=== PATIENT | female | born 1975 | race Caucasian/White ===

== ENCOUNTER 2025-07-17 11:50 | Emergency (ER) | payer BC, OTHER, SELFPAY ==
--- OUTSIDE RECORDS SUMMARY | 2013-11-12 23:00 | XMS_ITS | Encounter Summary ---
Author Organization [facility] Healthcare Address [address] [place] [address] Care Team Providers Care Manager Welding Name Role Phone Unavailable Primary Care Provider Unavailabl e Reason for Visit * Diagnostic Imaging (Routine) - Pending Review Specialty Diagnoses / Procedures Referred By Contac t Referred To Contact Procedures Breast Imaging Diagnostic Outside Reference Sydnie Augustine, CARLOS [address] [address] Phone: tel: fax: Referral ID Status Reason Start Date Expiration Date V isits Requested Visits Authorized [id number] Pending Review 06/23/2024 07/23/2025 1 1 Encounter Details Date Type Department Care Team (Late st Contact Info) Description 11/13/2013 Hospital Encounter [facility] [address] [place] [id number] Social History Tobacco Use Types Packs/Day Years Used Date Smoking Tobacco: Never Smokeless Tobacco: Never Alcohol Use Standard Drinks/Week Comments Yes 0 (1 standard drink = 0.6 oz pur e alcohol) AUDIT-C Answer Date Recorded Q1: How often do you have a drink containing alc ohol? Monthly or less 07/14/2025 Q2: How many drinks containi ng alcohol do you have on a typical day when you are drinking? 1 or 2 07/14/2025 Q3: How often do you have si x or more drinks on one occasion? Never 07/14/2025 Personal Safety Answer Date Recorded Have you ever been in or are you currently in a harmful physical or emotional relationship or is someone making you feel afraid or unsafe? Denies 07/14/2025 Comments No Sex and Gender Information Value Date Recorded Sex Assigned at Not on file Legal Sex Female 4:25 PM CDT Gender Identity Not on file Sexual Orientation Not on file documented as of this encounter Functional Status * C.A.G.E. Question Answer Date of Assessment Author Have you ever felt the need to Cut down on your drinking? 0 10/21/2024 9:00 AM Guillermina Gregorio RN Have people ever Annoyed yo u by criticizing your drinking? 0 10/21/2024 9:00 AM Jaymie Gregorio RN Have you ever felt bad or G uilty about your drinking? 0 10/21/2024 9:00 AM Guillermina Gregorio RN Have you ever had a drink fi rst thing in the morning to steady your nerves or get rid of a hangover? Eye ammonia nitrate operator? 0 10/21/2024 9:00 AM Guillermina Gregorio RN CAGE SCORE: 2 or Greater = Positive 0 10/21 9:00 AM Guillermina Gregorio RN * Difference in Last Two Wenceslao Scores Answer Date of Assessment Author -3 10/21/2024 8:00 AM Jaymie Gregorio RN * Question Answer Date of Assessment Author BP Location Right arm 07/14/2025 8:30 AM Magaly Francisco RN BP Method Automatic 07/14/2025 8:30 AM Magaly Francisco, WANDY * Wyman Fall Risk Question Answer Date of Assessment Author History of Falling 0 07/14/2025 8:30 AM Magaly Francisco RN Secondary Diagnosis 15 07/14/2025 8:30 AM CS Magaly Jon, hvac mechanical engineer Aids 0 07/14/2025 8:30 AM Magaly Castorena RN Intravenous Therapy/Heparin/Saline Lock 0 07/14/2025 8:30 AM Magaly Cabral, WANDY Gait/Transferring 0 07/14/2025 8:30 AM Magaly Francisco RN Mental Status 0 07/14/2025 8:30 AM ADMINISTRATION MANAGER Magaly Payan, WANDY Wyman Fall Risk Score (Score >= 45 places fall precaution order) 15 07/14/2025 8:30 AM ADMINISTRATION MANAGER Kiran Payan RN Prior Fall Event (Autopopulated from EMR) None found 07/14/2025 8:30 AM ADMINISTRATION MANAGER Magaly Davies, WANDY * Wenceslao Scale Question Answer Date of Assessment Author Sensory Perceptions 4 10/21/2024 8:00 AM CD Guillermina Jarvis RN Moisture 4 10/21/2024 8:00 AM CDT Guillermina Black RN Activity 4 10/21/2024 8:00 AM CDGuillermina Jarvis RN Mobility 4 10/21/2024 8:00 AM CDT Guillermina Black RN Nutrition 3 10/21/2024 8:00 AM Guillermina Gregorio RN Friction and Shear 3 10/21/2024 8:00 AM CDT Guillermina Black RN Wenceslao Scale Score 22 10/21/2024 8:00 AM CDT Guillermina Black RN * Question Answer Date of Assessment Author MAP (mmHg) 74 10/21/2024 8:28 AM CDT [facility] Kia hein * Fall Risk Interventions Question Answer Date of Assessment Author All Low Fall Interventions Applied Yes 2024 8:00 AM Guillermina Gregorio RN All Moderate Fall Interventions Applied Yes 0 10/21/2024 8:00 AM CDT Guillermina Black RN * B.M.A.T. - Bedside Mobility Assessment Tool for Nurses Question Answer Date of Assessment Author Is patient able to participate in the BMAT? Yes 10/20/2024 7:15 PM CDT Chelsea Templeton BMAT Level Level 4 - Green 10/20/2024 7:15 PM CDT Lizzie Allen * Question Answer Date of Assessment Author 1. Has the patient self-repo rted, presented with clinical signs of, or have a documented history of any of the following within the past 30 days? No 10/21/2024 9:33 AM CDT Guillermina Welch RN * Self-Injurious Risk Level Answer Date of Assessment Author No risk level 10/21/2024 9:33 AM MARY ELLENT Jaymie Black RN * Pressure Injury Prevention Question Answer Date of Assessment Author Pressure Ulcer Prevention Interventions Keep skin clean and dry (Sensory Perception/Moisture ) 10/20/2024 7:15 PM CDT Lizzie Templeton * Transdermal Patch Admission Assessment Question Answer Date of Assessment Author Transdermal Patch Assessment on Admission Not Present 10/21/2024 9:33 AM MARY ELLENT Guillermina Black RN * AUDIT-C Score Answer Date of Assessment Author 1 07/14/2025 8:43 AM Magaly Cabral RN * Alcohol Use Question Answer Date of Assessment Author Q1: How often do you have a drink containing alcohol? Monthly or less 07/14/2025 8:43 AM Kiran Francisco RN Q2: How many drinks containing alcohol do you have on a typical day when you are drinking? 1 or 2 07/14/2025 8:43 AM Magaly Francisco RN Q3: How often do you have six or more drinks on one occasion? Never 07/14/2025 8:43 AM Kiran Francisco RN * Integumentary Question Answer Date of Assessment Author Skin Color Appropriate for ethnicity 10/21/2024 8:00 AM Guillermina Gregorio RN Skin Condition/Temp Warm;Dry 10/21/2024 8 :00 AM Guillermina Gregorio RN Skin Integrity Surgical incision 10/21/2024 8:0 0 AM Guillermina Gregorio RN Skin Turgor Non-tenting 10/21/2024 8:00 AM Guillermina Gregorio RN Integumentary Additional Assessments Yes-Wenceslao 10/21/2024 8:00 AM Guillermina Gregorio RN Integumentary (WDL) WDL 10/21/2024 8 :00 AM Guillermina Gregorio RN Skin Location L breast 10/21/2024 8:00 AM Guillermina Gregorio RN * Wenceslao Scale Question Answer Date of Assessment Author Wenceslao Scale Used Wenceslao 10/20/2024 4:00 PM MARY ELLENT Krystle Gaming RN * Question Answer Date of Assessment Author Hearing - Right Ear Functional 07/14/2025 8:30 AM Magaly Jon RN Hearing - Left Ear Functional 07/14/2025 8:30 AM Magaly Francisco, WANDY Assistive Devices/DME Eyeglasses 07/14/2025 8:30 AM Magaly Francisco, RN * Question Answer Date of Assessment Author BP Location Right arm 07/14/2025 8:30 AM Magaly Francisco, RN BP Method Automatic 07/14/2025 8:30 AM Magaly Francisco, RN * Question Answer Date of Assessment Author Percent Meal Eaten (%) 100 10/21/2024 8:30 AM Kia Chavez Feeding Level of Assistance Able to feed self 10/21/2024 12:05 PM CDT Kia Brady Appetite Good 10/21/2024 8:30 AM CDT Kia Clayton ed Percent Snack Eaten (%) 100 10/21/2024 12:05 PM CDT Kia Brady * Fall Risk Interventions Question Answer Date of Assessment Author All Low Fall Interventions Applied Yes 2024 8:00 AM Guillermina Gregorio RN All Moderate Fall Interventions Applied Yes 0 10/21/2024 8:00 AM Guillermina Gregorio RN * ADL Screening Question Answer Date of Assessment Author Patient's Vision Adequate to Safely Complete Daily Activities Yes 10/21/2024 9:33 AM Guillermina Gregorio RN Patient's Judgement Adequate to Safely Complete Daily Activities Yes 10/21/2024 9:33 AM Guillermina Gregorio RN Patient's Memory Adequate to Safely Complete Daily Activities Yes 10/21/2024 9:33 AM Guillermina Gregorio RN Patient Able to Express Needs/Desires Yes 10/21/2024 9:33 AM Guillermina Gregorio RN Dressing Needs assistance 10/21/2024 9:33 AM Guillermina Mitchell RN Grooming Independent 10/21/2024 9:33 AM Guillermina Gregorio RN Feeding Independent 10/21/2024 9:33 AM Guillermina Gregorio RN Bathing Independent 10/21/2024 9:33 AM MARY ELLENT Guillermina Black RN Toileting Independent 10/21/2024 9:33 AM Guillermina Gregorio RN In/Out Bed Independent 10/21/2024 9:33 AM Guillermina Gregorio RN Walks in Home Independent 10/21/2024 9:33 AM MARY ELLENT Guillermina Black RN Weakness of Legs None 10/21/2024 9:33 AM MARY ELLENT Guillermina Lacy RN Weakness of Arms/Hands None 10/21/2024 9:33 AM MARY ELLENT Guillermina Black RN Dominant hand? Right 10/21/2024 9:33 AM MARY ELLENT Guillermina Menchaca RN Decline in ADLs in last 2 weeks? No 10/21/2024 9:33 AM Guillermina Gregorio RN * Therapy Consults Question Answer Date of Assessment Author PT Evaluation Needed 1 10/21/2024 9:33 AM Guillermina Machado RN OT Evaluation Needed 1 10/21/2024 9:33 AM Guillermina Machado RN NET DEVELOPER WITH WCF Evaluation Needed 2 10/21/2024 9:33 AM Guillermina Gregorio RN * Hygiene Question Answer Date of Assessment Author Hygiene Level of Assistance Minimal assist 10/21/2024 5:50 AM CDT Lizzie Templeton Toileting: Assistance with Up to bathroom toilet 10/21/2024 8:30 AM MARY ELLENT Kia Brady Toileting: Level of assistance Independent 10/21/2024 8:30 AM CDT Kia Brady Bath Not bathed/showered 10/21/2024 9:29 AM CD T Janeen Varghese, WANDY documented as of this encounter Mental Status * Question Answer Entry Date Author Orientation Oriented X4 (person, place, time, situation) 10/21/2024 9:15 AM CDT Vanessa Chan, OT * Question Answer Entry Date Author Level of Consciousness Alert;Awake 10/21/2024 8:00 AM MARY ELLENT Guillermina Black RN Neuro (WDL) WDL 10/21/2024 8:00 AM CDT Guillermina Black RN Other Neuro Symptoms Fatigue 10/21/2024 8:00 AM C DT Guillermina Black RN * Short Blessed Test Question Answer Entry Date Author What year is it now? 0 10/21/2024 9:15 AM CDT Vanessa Chan OT What month is it now? 0 10/21/2024 9:15 AM CDT Vanessa Chan OT Without looking at the clock, tell me what time it is 0 10/21/2024 9:15 AM CDT Vanessa Chan OT Count aloud backwards from 20-1 0 10/21/2024 9:15 AM CDT Vanessa Chan OT Say the months of the year backwards in reverse order 0 10/21/2024 9:15 AM CDT Vanessa Chan OT Repeat the name and address I asked you to remember 0 10/21/2024 9:15 AM CDT Vanessa Chan OT Repeat this name and address after me Khalif Pierce [address] [place] [address] 10/21/2024 9:15 AM CDT Vanessa Chan OT Short Blessed Total Score 0 10/21/2024 9:15 AM CDT Vanessa Chan OT Short Blessed Comments WFL 9:15 AM CDT Vanessa Chan OT documented in this encounter Plan of Treatment Upcoming Encounters Date Type Department Care Team (Late st Contact Info) Description 07/22/2025 7:30 AM ADMINISTRATION MANAGER Hospital Encounter [facility]) [address] [place] [address] Paul Abdullahi MD [facility] [address] [place] [address] 07/22/2025 7:30 AM ADMINISTRATION MANAGER Anesthesia Event [facility]) [address] [place] [address] Lulu Mayers NP [address] [facility] [id number] [place] [address] 07/22/2025 7:30 AM ADMINISTRATION MANAGER - 07/22/2025 4:55 PM ADMINISTRATION MANAGER Surgery [facility]) [address] [place] [address] Paul Abdullahi MD [address] [place] [address] FREE FLAP DEEP INFERIOR EPIGASTRIC PERFORATORS Scheduled Procedures Name Priority Associated Diagnoses Date/Ti me FREE FLAP DEEP INFERIOR EPIGASTRIC PERFORATORS Absence of breast, unspecified laterality 07/22/2025 7:30 AM ADMINISTRATION MANAGER documented as of this encounter Procedures Procedure Name Priority Date/Time Associated Diagnosis Comments BREAST IMAGING MG DIAGNOSTIC OUTSIDE REFERENCE Routine 11/13/2013 12:00 AM CDT documented in this encounter Results * Breast Imaging Diagnostic Outside Reference (11/13/2013 12:00 AM CDT) Impressions [facility] - 06/23/2024 7:20 PM ADMINISTRATION MANAGER These images are for Reference purposes only and have not been reviewed by [facility] Radiology. There will be no report generated by a [facility] Radiologist. Narrative [facility] - 06/23/2024 7:20 PM ADMINISTRATION MANAGER EXAMINATION: Images For Reference Purposes Only us Sydnie Augustine NP IMG MAMMO PROCEDURES Fi nal Result [facility] documented in this encounter Visit Diagnoses Not on filedocumented in this encounter
--- OUTSIDE RECORDS SUMMARY | 2013-11-23 23:00 | XMS_ITS | Encounter Summary ---
Author Organization [facility] Healthcare Address [address] [place] [address] Care Team Providers Care Front Office Associate Name Role Phone Unavailable Primary Care Provider Unavailabl e Reason for Visit * Diagnostic Imaging (Routine) - Pending Review Specialty Diagnoses / Procedures Referred By Contac t Referred To Contact Procedures Breast Imaging Diagnostic Outside Reference Sydnie Augustine, CARLOS [address] [address] Phone: tel: fax: Referral ID Status Reason Start Date Expiration Date V isits Requested Visits Authorized [id number] Pending Review 06/23/2024 07/23/2025 1 1 Encounter Details Date Type Department Care Team (Late st Contact Info) Description 11/24/2013 Hospital Encounter [facility] [address] [place] [phone] Social History Tobacco Use Types Packs/Day [...] or get rid of a hangover? Eye video manager? 0 10/21/2024 9:00 AM Guillermina Gregorio RN [...] 15 07/14/2025 8:30 AM CS Magaly Jon, citizen participation specialist Aids 0 07/14/2025 8:30 AM Magaly Castorena RN Intravenous Therapy/Heparin/Saline Lock 0 07/14/2025 8:30 AM Magaly Cabral, WANDY Gait/Transferring 0 07/14/2025 8:30 AM Magaly Francisco RN Mental Status 0 07/14/2025 8:30 AM PONY EDGER Magaly Payan, WANDY Wyman Fall Risk Score (Score >= 45 places fall precaution order) 15 07/14/2025 8:30 AM PONY EDGER Kiran Payan RN Prior Fall Event (Autopopulated from EMR) None found 07/14/2025 8:30 AM PONY EDGER Magaly Davies, WANDY * Wenceslao Scale Question [...] MAP (mmHg) 74 10/21/2024 8:28 AM CDT [facility] K[facility] * Fall Risk Interventions Question [...] level 10/21/2024 9:33 AM MARY ELLENT Jaymie Blcak RN * Pressure Injury Prevention Question Answer [...] one occasion? Never 07/14/2025 8:43 AM Kiran Franicsco RN * Integumentary Question Answer Date of [...] 1 10/21/2024 9:33 AM Guillermina Machado RN PHOTOGRAPHER MODEL Evaluation Needed 2 10/21/2024 9:33 AM Guillermina [...] name and address after me Khalif Pierce [address] [place] [address] 10/21/2024 9:15 AM CDT Vanessa Chan OT Short Blessed Total Score 0 10/21/2024 9:15 AM CDT Vanessa Chan OT Short Blessed Comments WFL 9:15 AM CDT Vanessa Chan OT documented in this encounter Plan of Treatment Upcoming Encounters Date Type Department Care Team (Late st Contact Info) Description 07/22/2025 7:30 AM PONY EDGER Hospital Encounter [facility] Operating [facility] [address] [place] [address] Paul Abdullahi MD [facility] [address] [place] [address] 07/22/2025 7:30 AM PONY EDGER Anesthesia Event [facility] Operating [facility]) [address] [place] [address] Lulu Mayers NP [address] [facility] [id number] [place] [address] 07/22/2025 7:30 AM PONY EDGER - 07/22/2025 4:55 PM PONY EDGER Surgery [facility] Operating [facility] [address] [place] [address] Paul Abdullahi MD [address] [place] [address] FREE FLAP DEEP INFERIOR EPIGASTRIC PERFORATORS Scheduled Procedures Name Priority Associated Diagnoses Date/Ti me FREE FLAP DEEP INFERIOR EPIGASTRIC PERFORATORS Absence of breast, unspecified laterality 07/22/2025 7:30 AM PONY EDGER documented as of this encounter Procedures Procedure Name Priority Date/Time Associated Diagnosis Comments BREAST IMAGING MG DIAGNOSTIC OUTSIDE REFERENCE Routine 11/24/2013 12:00 AM CDT documented in this encounter Results * Breast Imaging Diagnostic Outside Reference (11/24/2013 12:00 AM CDT) Impressions [facility] - 06/23/2024 7:20 PM PONY EDGER These images are for Reference purposes only and have not been reviewed by [facility] Radiology. There will be no report generated by a [facility] Radiologist. Narrative [facility]_M[facility]MO[facility] - 06/23/2024 7:20 PM PONY EDGER EXAMINATION: Images For Reference Purposes Only us Sydnie Augustine NP IMG MAMMO PROCEDURES Fi nal Result [facility] documented in this encounter Visit Diagnoses Not on filedocumented in this encounter
--- OUTSIDE RECORDS SUMMARY | 2018-08-18 | XMS_ITS | Encounter Summary ---
Author Organization [facility] Healthcare Address [address] [place] [address] Care Team Providers Care Sales Service Route Manager Name Role Phone Unavailable Primary Care Provider Unavailabl e Reason for Visit * Diagnostic Imaging (Routine) - Pending Review Specialty Diagnoses / Procedures Referred By Contac t Referred To Contact Procedures Breast Imaging Screening Outside Reference Sydnie Augustine, CARLOS [address] [address] Phone: tel: fax: Referral ID Status Reason Start Date Expiration Date V isits Requested Visits Authorized [id number] Pending Review 06/25/2024 2025 1 1 Encounter Details Date Type Department Care Team (Late st Contact Info) Description 08/18/2018 Hospital Encounter [facility] [address] [place] [id number] Social History Tobacco Use Types Packs/Day [...] or get rid of a hangover? 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 0 10/21/2024 9:00 AM Guillermina Gregorio [...] 15 07/14/2025 8:30 AM CS Magaly Jon, pre k special education teacher Aids 0 07/14/2025 8:30 AM Magaly Castorena RN Intravenous Therapy/Heparin/Saline Lock 0 07/14/2025 8:30 AM Magaly Cabral, WANDY Gait/Transferring 0 07/14/2025 8:30 AM Magaly Francisco RN Mental Status 0 07/14/2025 8:30 AM REFRIGERATOR REPAIR TECHNICIAN Magaly Payan, WANDY Wyman Fall Risk Score (Score >= 45 places fall precaution order) 15 07/14/2025 8:30 AM REFRIGERATOR REPAIR TECHNICIAN Kiran Payan RN Prior Fall Event (Autopopulated from EMR) None found 07/14/2025 8:30 AM REFRIGERATOR REPAIR TECHNICIAN Magaly Davies, WANDY * Wenceslao Scale Question [...] MAP (mmHg) 74 10/21/2024 8:[address] [facility] Kia hein * Fall Risk Interventions [...] 1 10/21/2024 9:33 AM Guillermina Machado RN LOCOMOTIVE CRANE OPERATOR Evaluation Needed 2 10/21/2024 9:33 AM Guillermina [...] name and address after me Khalif Pierce [address] [place] [address] 10/21/2024 9:15 AM CDT Vanessa Chan OT Short Blessed Total Score 0 10/21/2024 9:15 AM CDT Vanessa Chan OT Short Blessed Comments WFL 9:15 AM CDT Vanessa Chan OT documented in this encounter Plan of Treatment Upcoming Encounters Date Type Department Care Team (Late st Contact Info) Description 07/22/2025 7:30 AM REFRIGERATOR REPAIR TECHNICIAN Hospital Encounter [facility] [address] [place] [address] Paul Abdullahi MD [facility] [address] [place] [address] 07/22/2025 7:30 AM REFRIGERATOR REPAIR TECHNICIAN Anesthesia Event [facility]) [address] [place] [address] Lulu Mayers NP [address] [facility] [id number] [place] [address] 07/22/2025 7:30 AM REFRIGERATOR REPAIR TECHNICIAN - 07/22/2025 4:55 PM REFRIGERATOR REPAIR TECHNICIAN Surgery [facility] Operating [facility] [address] [place] [address] Paul Abdullahi MD [address] [place] [address] FREE FLAP DEEP INFERIOR EPIGASTRIC PERFORATORS Scheduled Procedures Name Priority Associated Diagnoses Date/Ti me FREE FLAP DEEP INFERIOR EPIGASTRIC PERFORATORS Absence of breast, unspecified laterality 07/22/2025 7:30 AM REFRIGERATOR REPAIR TECHNICIAN documented as of this encounter Procedures Procedure Name Priority Date/Time Associated Diagnosis Comments BREAST IMAGING MG SCREENING OUTSIDE REFERENCE Routine 08/18/2018 12:00 AM REFRIGERATOR REPAIR TECHNICIAN documented in this encounter Results * Breast Imaging Screening Outside Reference (08/18/2018 12:00 AM REFRIGERATOR REPAIR TECHNICIAN) Impressions [facility] - 06/25/2024 8:34 PM REFRIGERATOR REPAIR TECHNICIAN These images are for Reference purposes only and have not been reviewed by [facility] Radiology. There will be no report generated by a [facility] Radiologist. Narrative [facility]MO[facility] - 06/25/2024 8:34 PM REFRIGERATOR REPAIR TECHNICIAN EXAMINATION: Images For Reference Purposes Only us Sydnie Augustine NP IMG MAMMO PROCEDURES Fi nal Result [facility] documented in this encounter Visit Diagnoses Not on filedocumented in this encounter
--- OUTSIDE RECORDS SUMMARY | 2019-08-24 | XMS_ITS | Encounter Summary ---
Author Organization [facility] Healthcare Address [address] [place] [address] Care Team Providers Care Certified Activities Director Name Role Phone Unavailable Primary Care Provider Unavailabl e Reason for Visit * Diagnostic Imaging (Routine) - Pending Review Specialty Diagnoses / Procedures Referred By Contac t Referred To Contact Procedures Breast Imaging Screening Outside Reference Sydnie Augustine, CARLOS [address] [address] Phone: tel: fax: Referral ID Status Reason Start Date Expiration Date V isits Requested Visits Authorized [id number] Pending Review 06/25/2024 2025 1 1 Encounter Details Date Type Department Care Team (Late st Contact Info) Description 08/24/2019 Hospital Encounter [facility] [address] [place] [id number] Social History Tobacco Use Types Packs/Day [...] or get rid of a hangover? Eye wound care rn? 0 10/21/2024 9:00 AM Guillermina Gregorio RN [...] 15 07/14/2025 8:30 AM CS Magaly Jon, commodity director Aids 0 07/14/2025 8:30 AM Magaly Castorena RN Intravenous Therapy/Heparin/Saline Lock 0 07/14/2025 8:30 AM Magaly Cabral, WANDY Gait/Transferring 0 07/14/2025 8:30 AM Magaly Francisco RN Mental Status 0 07/14/2025 8:30 AM MATERIAL PREPARATION WORKER Magaly Payan, WANDY Wyman Fall Risk Score (Score >= 45 places fall precaution order) 15 07/14/2025 8:30 AM MATERIAL PREPARATION WORKER Kiran Payan RN Prior Fall Event (Autopopulated from EMR) None found 07/14/2025 8:30 AM MATERIAL PREPARATION WORKER Magaly Davies, WANDY * Wenceslao Scale Question [...] (mmHg) 74 10/21/2024 8:28 AM CDT [facility] Kia [facility]in * Fall Risk Interventions [...] 1 10/21/2024 9:33 AM Guillermina Machado RN CLAIM AUDITOR Evaluation Needed 2 10/21/2024 9:33 AM Guillermina [...] name and address after me Khalif Pierce [address] [place] [address] 10/21/2024 9:15 AM CDT Vanessa Chan OT Short Blessed Total Score 0 10/21/2024 9:15 AM CDT Vanessa Chan OT Short Blessed Comments WFL 9:15 AM CDT Vanessa Chan OT documented in this encounter Plan of Treatment Upcoming Encounters Date Type Department Care Team (Late st Contact Info) Description 07/22/2025 7:30 AM MATERIAL PREPARATION WORKER Hospital Encounter [facility] Operating Room [facility]) [address] [place] [address] Paul Abdullahi MD [facility] [address] [place] [address] 07/22/2025 7:30 AM MATERIAL PREPARATION WORKER Anesthesia Event [facility] Operating [facility]) [address] [place] [address] Lulu Mayers NP [address] [facility] [phone] [place] [address] 07/22/2025 7:30 AM MATERIAL PREPARATION WORKER - 07/22/2025 4:55 PM MATERIAL PREPARATION WORKER Surgery [facility] Operating [facility]) [address] [place] [address] Paul Abdullahi MD [address] [place] [address] FREE FLAP DEEP INFERIOR EPIGASTRIC PERFORATORS Scheduled Procedures Name Priority Associated Diagnoses Date/Ti me FREE FLAP DEEP INFERIOR EPIGASTRIC PERFORATORS Absence of breast, unspecified laterality 07/22/2025 7:30 AM MATERIAL PREPARATION WORKER documented as of this encounter Procedures Procedure Name Priority Date/Time Associated Diagnosis Comments BREAST IMAGING MG SCREENING OUTSIDE REFERENCE Routine 08/24/2019 12:00 AM MATERIAL PREPARATION WORKER documented in this encounter Results * Breast Imaging Screening Outside Reference (08/24/2019 12:00 AM MATERIAL PREPARATION WORKER) Impressions [facility] - 06/25/2024 8:34 PM MATERIAL PREPARATION WORKER These images are for Reference purposes only and have not been reviewed by [facility] Radiology. There will be no report generated by a [facility] Radiologist. Narrative [facility] - 06/25/2024 8:34 PM MATERIAL PREPARATION WORKER EXAMINATION: Images For Reference Purposes Only us Sydnie Augustine NP IMG MAMMO PROCEDURES Fi nal Result [facility] documented in this encounter Visit Diagnoses Not on filedocumented in this encounter
--- OUTSIDE RECORDS SUMMARY | 2020-03-08 23:00 | XMS_ITS | Encounter Summary ---
Author Organization [facility] Healthcare Address [address] [place] [address] Care Team Providers Care Or Director Name Role Phone Unavailable Primary Care Provider Unavailabl e Reason for Visit * Diagnostic Imaging (Routine) - Pending Review Specialty Diagnoses / Procedures Referred By Contac t Referred To Contact Procedures Breast Imaging US Outside Reference Sydnie Augustine, CARLOS [address] [address] Phone: tel: fax: Referral ID Status Reason Start Date Expiration Date V isits Requested Visits Authorized [id number] Pending Review 06/25/2024 2025 1 1 Encounter Details Date Type Department Care Team (Late st Contact Info) Description 03/09/2020 Hospital Encounter [facility] Radiology [facility] [address] [place] [address] Social History Tobacco Use Types Packs/Day [...] or get rid of a hangover? 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 0 10/21/2024 9:00 AM Guillermina Gregorio RN [...] 15 07/14/2025 8:30 AM CS Magaly Jon, advertising space clerk Aids 0 07/14/2025 8:30 AM Magaly Castorena RN Intravenous Therapy/Heparin/Saline Lock 0 07/14/2025 8:30 AM Magaly Cabral, WANDY Gait/Transferring 0 07/14/2025 8:30 AM Magaly Francisco RN Mental Status 0 07/14/2025 8:30 AM GROUNDWATER CONSULTANT Magaly Payan, WANDY Wyman Fall Risk Score (Score >= 45 places fall precaution order) 15 07/14/2025 8:30 AM GROUNDWATER CONSULTANT Kiran Payan RN Prior Fall Event (Autopopulated from EMR) None found 07/14/2025 8:30 AM GROUNDWATER CONSULTANT Magaly Davies, WANDY * Wenceslao Scale Question [...] MAP (mmHg) 74 10/21/2024 8:28 AM CDT [facility] * Fall Risk Interventions [...] - Right Ear Functional 07/14/2025 8:30 AM C Magaly Payan RN Hearing - Left Ear Functional 07/14/2025 8:30 AM Magaly Francisco, WANDY Assistive Devices/DME Eyeglasses 07/14/2025 8:30 AM Magaly Francisco, WANDY * Question Answer Date of Assessment Author BP Location Right arm 07/14/2025 8:30 AM Magaly Francisco, RN BP Method Automatic 07/14/2025 8:30 AM Magaly Francisco, RN * Question Answer Date of Assessment Author Percent Meal Eaten (%) 100 10/21/2024 8:30 A M Kia Chawla Feeding Level of Assistance Able to feed self 10/21/2024 12:05 PM T Kia Brady Appetite Good 10/21/2024 8:30 AM T Kia Clayton ed Percent Snack Eaten (%) [...] 1 10/21/2024 9:33 AM Guillermina Machado RN MASON TENDER Evaluation Needed 2 10/21/2024 9:33 AM Guillermina [...] Neuro Symptoms Fatigue 10/21/2024 8:00 AM C Guillermina Eason RN * Short Blessed Test Question Answer Entry Date Author What year is it now? 0 10/21/2024 9:15 AM CDT Vanessa Cahn OT What month is it now? 0 [...] name and address after me Khalif Pierce [address] [place] [address] 10/21/2024 9:15 AM CDT Vanessa Chan OT Short Blessed Total Score 0 10/21/2024 9:15 AM CDT Vanessa Chan OT Short Blessed Comments WFL 9:15 AM CDT Vanessa Chan OT documented in this encounter Plan of Treatment Upcoming Encounters Date Type Department Care Team (Late st Contact Info) Description 07/22/2025 7:30 AM GROUNDWATER CONSULTANT Hospital Encounter [facility] Operating [facility] [address] [place] [address] Paul Abdullahi MD [facility] [address] [place] [address] 07/22/2025 7:30 AM GROUNDWATER CONSULTANT Anesthesia Event [facility] Operating [facility]) [address] [place] [address] Lulu Mayers NP [address] [facility] [phone] [place] [address] 07/22/2025 7:30 AM GROUNDWATER CONSULTANT - 07/22/2025 4:55 PM GROUNDWATER CONSULTANT Surgery [facility] Operating [facility]) [address] [place] [address] Paul Abdullahi MD [address] [place] [address] FREE FLAP DEEP INFERIOR EPIGASTRIC PERFORATORS Scheduled Procedures Name Priority Associated Diagnoses Date/Ti me FREE FLAP DEEP INFERIOR EPIGASTRIC PERFORATORS Absence of breast, unspecified laterality 07/22/2025 7:30 AM GROUNDWATER CONSULTANT documented as of this encounter Procedures Procedure Name Priority Date/Time Associated Diagnosis Comments BREAST IMAGING US OUTSIDE REFERENCE Routine 03/09/2020 12:00 AM CDT documented in this encounter Results * Breast Imaging US Outside Reference (03/09/2020 12:00 AM CDT) Impressions [facility] - 06/25/2024 8:34 PM GROUNDWATER CONSULTANT These images are for Reference purposes only and have not been reviewed by [facility] Radiology. There will be no report generated by a [facility] Radiologist. Narrative [facility] - 06/25/2024 8:34 PM GROUNDWATER CONSULTANT EXAMINATION: Images For Reference Purposes Only us Sydnie Augustine NP IMG MAMMO PROCEDURES Fi nal Result [facility] documented in this encounter Visit Diagnoses Not on filedocumented in this encounter
--- OUTSIDE RECORDS SUMMARY | 2020-03-08 23:00 | XMS_ITS | Encounter Summary ---
Author Organization [facility] Healthcare Address [address] [place] [address] Care Team Providers Care Public Policy Associate Name Role Phone Unavailable Primary Care Provider Unavailabl e Reason for Visit * Diagnostic Imaging (Routine) - Pending Review Specialty Diagnoses / Procedures Referred By Contac t Referred To Contact Procedures Breast Imaging Diagnostic Outside Reference Sydnie Augustine, CARLOS [address] [address] Phone: tel: fax: Referral ID Status Reason Start Date Expiration Date V isits Requested Visits Authorized [id number] Pending Review 06/18/2024 07/18/2025 1 1 Encounter Details Date Type Department Care Team (Late st Contact Info) Description 03/09/2020 Hospital Encounter [facility] Radiology [facility] [address] [place] [address] Social History Tobacco Use Types Packs/Day [...] or get rid of a hangover? 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 0 10/21/2024 9:00 AM Guillermina Gregorio RN [...] 15 07/14/2025 8:30 AM CS Magaly Jon, dumping machine operator Aids 0 07/14/2025 8:30 AM Magaly Castorena RN Intravenous Therapy/Heparin/Saline Lock 0 07/14/2025 8:30 AM Magaly Cabral, WANDY Gait/Transferring 0 07/14/2025 8:30 AM Magaly Francisco RN Mental Status 0 07/14/2025 8:30 AM SLATE TRIMMER Magaly Payan, WANDY Wyman Fall Risk Score (Score >= 45 places fall precaution order) 15 07/14/2025 8:30 AM SLATE TRIMMER Kiran Payan RN Prior Fall Event (Autopopulated from EMR) None found 07/14/2025 8:30 AM SLATE TRIMMER Magaly Davies, WANDY * Wenceslao Scale Question [...] MAP (mmHg) 74 10/21/2024 8:28 AM CDT [facility] K[facility] * Fall Risk [...] 1 10/21/2024 9:33 AM Guillermina Machado RN FRONT END LOADER OPERATOR Evaluation Needed 2 10/21/2024 9:33 AM [...] name and address after me Khalif Pierce [address] [place] [address] 10/21/2024 9:15 AM CDT Vanessa Chan OT Short Blessed Total Score 0 10/21/2024 9:15 AM CDT Vanessa Chan OT Short Blessed Comments WFL 9:15 AM CDT Vanessa Chan OT documented in this encounter Plan of Treatment Upcoming Encounters Date Type Department Care Team (Late st Contact Info) Description 07/22/2025 7:30 AM SLATE TRIMMER Hospital Encounter [facility] Operating [facility]) [address] [place] [address] Paul Abdullahi MD [facility] [address] [place] [address] 07/22/2025 7:30 AM SLATE TRIMMER Anesthesia Event [facility] Operating [facility]) [address] [place] [address] Lulu Mayers NP [address] [facility] [phone] [place] [address] 07/22/2025 7:30 AM SLATE TRIMMER - 07/22/2025 4:55 PM SLATE TRIMMER Surgery [facility] Operating [facility]) [address] [place] [address] Paul Abdullahi MD [address] [place] [address] FREE FLAP DEEP INFERIOR EPIGASTRIC PERFORATORS Scheduled Procedures Name Priority Associated Diagnoses Date/Ti me FREE FLAP DEEP INFERIOR EPIGASTRIC PERFORATORS Absence of breast, unspecified laterality 07/22/2025 7:30 AM SLATE TRIMMER documented as of this encounter Procedures Procedure Name Priority Date/Time Associated Diagnosis Comments BREAST IMAGING MG DIAGNOSTIC OUTSIDE REFERENCE Routine 03/09/2020 12:00 AM CDT documented in this encounter Results * Breast Imaging Diagnostic Outside Reference (03/09/2020 12:00 AM CDT) Impressions [facility] - 06/18/2024 7:49 PM SLATE TRIMMER These images are for Reference purposes only and have not been reviewed by [facility] Radiology. There will be no report generated by a [facility] Radiologist. Narrative [facility] - 06/18/2024 7:49 PM SLATE TRIMMER EXAMINATION: Images For Reference Purposes Only us Sydnie Augustine NP IMG MAMMO PROCEDURES Fi nal Result [facility] documented in this encounter Visit Diagnoses Not on filedocumented in this encounter
--- NOTE | ~2025-07-17 | US_ITS ---
RIGHT LOWER EXTREMITY VENOUS DUPLEX Clinical History: DVT rule out COMPARISON: None TECHNIQUE: Grayscale, color, duplex/spectral Doppler sonography right leg FINDINGS: Right leg common femoral, femoral, popliteal, and calf veins compressible and color Doppler patent. Normal augmentation with distal compression. No internal echoes. Dilated superficial veins along area of pain along calf, short segment of which is likely thrombosed. IMPRESSION: 1. No right leg DVT. Reviewed, dictated and finalized at location [facility] IMPRESSION: 1. No right leg DVT.
[2025-07-17 11:57] VITALS: BP 126/71; PULSE 84; RESP 16; TEMP 37.1; O2SAT 97
--- NOTE | 2025-07-17 13:15 | ED.LOWEXIN ---
HPI - Extremity Injury (Lower) General Chief Complaint: Extremity Injury, Lower Stated Complaint: blood clot? R leg Time Seen by Provider: 07/17/25 13:04 Source: patient Mode of arrival: ambulatory Limitations: no limitations History of Present Illness HPI Narrative: 49 years old white female came to the ED by private car concerning about the possibility of blood clot in her right leg. [facility] and was told that she need venous Doppler to rule out the possibility right leg deep vein thrombosis. Patient's symptoms started few hours after shoveling snow few days ago of the right leg anteriorly. History of varicose vein at that leg. Patient denies any pain the calf muscles or any trauma. Related Data Allergies Allergy/AdvReac Type Severity Reaction Status Date / Time No Known Allergies Allergy Mild Verified 07/17/25 11:52 Review of Systems Review of Systems: All systems reviewed & are unremarkable except as noted in HPI and below Exam Narrative: General appearance: Well-developed, well-nourished Skin: Normal color Head: Normocephalic, nontraumatic Vascular: Normal peripheral pulses, normal capillary refill. Musculoskeletal: Right lower leg showing diffuse tenderness anteriorly otherwise no bruises, no swelling or rash, scattered varicose veins anteriorly and posteriorly at that leg. No calf muscle tenderness. Neurologic: Alert and oriented ?3, INFORMATION TECHNOLOGY INSTRUCTOR is normal as tested, no gross motor deficit Course Vital Signs Vital signs: Vital Signs Temperature 37.1 C 07/17/25 11:57 Pulse Rate 84 07/17/25 11:57 Respiratory Rate 16 07/17/25 11:57 Blood Pressure 126/71 07/17/25 11:57 Pulse Oximetry 97 07/17/25 11:57 Oxygen Delivery Room Air 07/17/25 11:57 Temperature 37.1 C 07/17/25 11:57 Pulse Rate 84 07/17/25 11:57 Respiratory Rate 16 07/17/25 11:57 Blood Pressure 126/71 07/17/25 11:57 Pulse Oximetry 97 07/17/25 11:57 Oxygen Delivery Room Air 07/17/25 11:57 [facility] Narrative Medical decision making narrative: Differential diagnosis include muscular strain of the right lower leg anteriorly secondary to shoveling snow. He deep vein thrombosis is extremely less likely. Venous Doppler was order at the triage prior to my physical examination Venous Doppler is negative for deep vein thrombosis. Discharge with right leg pain, muscle related. Differential Diagnosis Differential Diagnosis: As above Imaging Data Radiologist's impression: ITS Impressions Venous Doppler Study 07/17/25 13:05 IMPRESSION: 1. No right leg DVT. Critical Care Time Critical Care Time Critical Care Time: No Discharge Plan Discharge Clinical Impression: Acute leg pain Patient Disposition: Home Condition: Stable Instructions: Leg Pain (ED) Additional Instructions: RETURN IF SYMPTOMS ARE WORSENING , CALL YOUR FAMILY PHYSICIAN FOR APPOINTMENT, TAKE TYLENOL IBUPROFEN NEEDED FOR ACHES AND PAIN, CONTINUE HOME MEDICATIONS. Patient Language: Croatian Follow-up/Referrals: Lefty,Willi Ireland MD [Primary Care Provider]
--- OUTSIDE RECORDS SUMMARY | 2025-07-17 13:20 | XMS_ITS | Clinical Summary ---
Author Organization [employer] [facility] [place] Address [address] [place] [address] Phone Care Team Providers Care Pbx Operator Name Role Phone Tahir Valles MD Primary Care Provider [phone] Allergies No known active allergies Medications VIT/FE FUMARATE/FA ( ORAL) Take by mouth. Active mesalamine (DELZICOL) 400 mg Capsule, Delayed Release(E.C.) Take 400 mg by mouth 3 times daily. Active Active Problems Patient Care Coordination No te Formatting of this note migh t be different from the original. 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 IBS (irritable bowel syndrome) Family History Medical History Relation Name Comments Cancer Maternal Grandfather bladder Breast Cancer Neg Hx Ovarian Cancer Neg Hx Relation Name Status Comments Maternal Grandfather Social History Tobacco Use Types Packs/Day Years Used Date Smoking Tobacco: Never Smokeless Tobacco: Never Alcohol Use Standard Drinks/Week Comments Yes 0 (1 standard drink = 0.6 oz pur e alcohol) moderate Comments No Sex and Gender Information Value Date Recorded Sex Assigned at Not on file Legal Sex Female 5:57 AM 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 Gender Identity Not on file Sexual Orientation Not on file Occupation Industry Job Start Date Job End Date Not on file Not on file Not on file Not on file Not on file Not on file Not on file Not on file Last Filed Vital Signs Vital Sign Reading Time Taken Comments Blood Pressure 112/63 11/24/2013 11:38 AM CDT Pulse 87 11/24/2013 11:38 AM CDT Temperature - - Respiratory Rate - - Oxygen Saturation - - Inhaled Oxygen Concentration - - Weight 66.7 kg (147 lb) 11/24/2013 11:38 AM CDT Height 167.6 cm (5' 6) 11/24/2013 11:38 AM CDT Body Mass Index 23.73 11/24/2013 11:38 AM CDT Plan of Treatment Health Maintenance Due Date Last Done Comments DTAP/TDAP/TD VACCINES (1 - Tdap) 1992 HEPATITIS B VACCINES (1 of 3 - 19+ 3-dose series) 1992 HPV/Cotest (21-29) 1994 CERVICAL CANCER SCREENING 2003 HPV/Cotest (30-65) 2003 PAP SMEAR 2003 BREAST CANCER SCREENING 11/24/2014 11/25/19 14, 11/13/2013, 10/28/2013, Additional history exists COLORECTAL SCREENING 2018 Colorectal Cancer Screening 2018 FIT-DNA Q 3 years 2018 FIT/FOBT Q 1 year 2018 Flex Sig/CT Colonography Q 5 years 2018 ZOSTER VACCINE (1 of 2) 2023 INFLUENZA VACCINE (#1) 2025 Procedures Procedure Name Priority Date/Time Associated Diagnosis Comments MAMMO DIAGNOSTIC UNI RIGHT W OR WO CAD Routine 11/24/2013 3:15 PM CDT Breast mass Abnormal ultrasound of breast Abnormal mammogram from Last 3 Months or Most Recently Relevant to Health Maintenance Results * MAMMO DIGITAL DIAG UNI RIGHT (11/24/2013 3:15 PM CDT) Anatomical Region Laterality Modality Breast Right Mammography 11/24/2013 3:05 PM CDT Impressions 11/30/2013 10:16 AM CDT IMPRESSION: Technically successful 10 gauge vacuum assisted ultrasound guided core biopsy of the right breast with tissue marker placement, 2 sites. Pathology pending. Dictated from [place] Narrative 11/30/2013 10:16 AM CDT EXAM: ULTRASOUND GUIDED CORE NEEDLE BIOPSY RIGHT BREAST, 2 SITES 11/24/13 Comparison: 11/13/2013 and older HISTORY: The patient's most recent diagnostic examination from [facility] on 11/13/2013 demonstrated bilateral breast masses. Biopsy of both masses in the right breast and short-term followup of the smaller masses within the left breast was recommended. PROCEDURE 1: ULTRASOUND-GUIDED CORE NEEDLE BIOPSY RIGHT BREAST, 10:00. PROCEDURE AND FINDINGS: The risks and potential benefits of the procedure were discussed with the patient and written informed was obtained. Preliminary ultrasound redemonstrates a hypoechoic mass in the posterior 10:00 position of the right breast. After sterile preparation of the skin, lidocaine was utilized for local anesthesia. A small skin zahra was made. Under ultrasound guidance, and a lateral approach, a 10 gauge vacuum assisted core biopsy needle was advanced through the mass. A total of 3 tissue cores were obtained. Under ultrasound guidance, a tissue marker clip was then placed at the biopsy site. The needle was withdrawn and compression applied to achieve hemostasis. A sterile bandage and an ice pack were applied. PROCEDURE 2: ULTRASOUND GUIDED CORE NEEDLE BIOPSY RIGHT BREAST, 1:00. PROCEDURE AND FINDINGS: The risks and potential benefits of the procedure were discussed with the patient and written informed was obtained. Preliminary ultrasound redemonstrates a hypoechoic mass at the 1:00 position of the right breast. After sterile preparation of the skin, lidocaine was utilized for local anesthesia. A small skin zahra was made. Under ultrasound guidance, and a lateral approach, a 10 gauge vacuum assisted core biopsy needle was advanced through the mass. A total of 3 tissue cores were obtained. Under ultrasound guidance, a tissue marker clip was then placed at the biopsy site. The needle was withdrawn and compression applied to achieve hemostasis. A sterile bandage and an ice pack were applied. Postprocedure two-view right unilateral digital mammogram demonstrates the tissue marker at the appropriate position. The patient tolerated the procedures well without immediate complication. The patient was given verbal as well as written postprocedural instructions prior to the release from the department. The tissue cores were submitted to surgical pathology in formalin for histologic analysis. Procedure Note Maci Healy MD - 11/30/2013 EXAM: ULTRASOUND GUIDED CORE NEEDLE BIOPSY RIGHT BREAST, 2 SITES 11/24/13 Comparison: 11/13/2013 and older HISTORY: The patient's most recent diagnostic examination from [facility] on 11/13/2013 demonstrated bilateral breast masses. Biopsy of both masses in the right breast and short-term followup of the smaller masses within the left breast was recommended. PROCEDURE 1: ULTRASOUND-GUIDED CORE NEEDLE BIOPSY RIGHT BREAST, 10:00. PROCEDURE AND FINDINGS: The risks and potential benefits of the procedure were discussed with the patient and written informed was obtained. Preliminary ultrasound redemonstrates a hypoechoic mass in the posterior 10:00 position of the right breast. After sterile preparation of the skin, lidocaine was utilized for local anesthesia. A small skin zahra was made. Under ultrasound guidance, and a lateral approach, a 10 gauge vacuum assisted core biopsy needle was advanced through the mass. A total of 3 tissue cores were obtained. Under ultrasound guidance, a tissue marker clip was then placed at the biopsy site. The needle was withdrawn and compression applied to achieve hemostasis. A sterile bandage and an ice pack were applied. PROCEDURE 2: ULTRASOUND GUIDED CORE NEEDLE BIOPSY RIGHT BREAST, 1:00. PROCEDURE AND FINDINGS: The risks and potential benefits of the procedure were discussed with the patient and written informed was obtained. Preliminary ultrasound redemonstrates a hypoechoic mass at the 1:00 position of the right breast. After sterile preparation of the skin, lidocaine was utilized for local anesthesia. A small skin zahra was made. Under ultrasound guidance, and a lateral approach, a 10 gauge vacuum assisted core biopsy needle was advanced through the mass. A total of 3 tissue cores were obtained. Under ultrasound guidance, a tissue marker clip was then placed at the biopsy site. The needle was withdrawn and compression applied to achieve hemostasis. A sterile bandage and an ice pack were applied. Postprocedure two-view right unilateral digital mammogram demonstrates the tissue marker at the appropriate position. The patient tolerated the procedures well without immediate complication. The patient was given verbal as well as written postprocedural instructions prior to the release from the department. The tissue cores were submitted to surgical pathology in formalin for histologic analysis. IMPRESSION IMPRESSION: Technically successful 10 gauge vacuum assisted ultrasound guided core biopsy of the right breast with tissue marker placement, 2 sites. Pathology pending. Dictated from Mahnaz Sheldon [place] Barbosa MD MAMMO ORDERABLES Final Result from Last 3 Months or Most Recently Relevant to Health Maintenance Insurance BCBS BLUE ACCESS/TRUE BLUE PPO [employer] HMO OPEN ACCESS Care Teams Pbx Operator Relationship Specialty Start Date End Date Tahir Valles MD [address] [place] [phone] PCP - General Family Practice 07/25/10
--- OUTSIDE RECORDS SUMMARY | 2025-07-17 13:20 | XMS_ITS | Clinical Summary ---
Author Organization [address] Address [address] [place] [phone] Care Team Providers Care Automobile Upholsterer Apprentice Name Role Phone Carlene Cramer MD Unavailable [phone] Willi Olea MD Primary Care Provider [phone] Allergies No known active allergies Medications mesalamine (LIALDA) 1.2 gram EC tabletIndicati ons:IBS Take 2 tablets (2.4 g total) by mouth every morning 4 Active cholestyramine (QUESTRAN) 4 gram packetIndicati ons:IBS Take 1 packet (4 g total) by mouth every morning 4 Active multivitamin tabletIndicati ons:supplement Take 1 tablet by mouth every morning Active famotidine (PEPCID) 20 mg tabletIndicati ons:Heartburn Take 1 tablet (20 mg total) by mouth as needed for heartburn Active acetaminophen (TYLENOL) 500 mg tabletIndicati ons:Pain Take 2 tablets (1,000 mg total) by mouth every 6 (six) hours as needed for pain Active tamoxifen (NOLVADEX) 20 mg tablet Take 1 tablet (20 mg total) by mouth daily 30 tablet 11 11/05/19 26 Active Additional Information Patient taking differently:20 mg oralNightly, Indications: prevention of breast cancer in high risk women, Informant: Self, Reported on 07/14/2025 cyclobenzaprin e (FLEXERIL) 10 mg tabletIndicati ons:Muscle Spasm Take 1 tablet (10 mg total) by mouth every 8 (eight) hours as needed for muscle spasms for up to 20 doses 20 tablet 5 07/14/20 25 Discontin ued(Thera py completed ) oxyCODONE (ROXICODONE) 5 mg immediate release tabletIndicati ons:Pain Take 1 tablet (5 mg total) by mouth every 4 (four) hours as needed for pain for up to 15 doses 15 tablet 5 07/14/20 25 Discontin ued(Thera py completed ) Active Problems Problem Noted Date Diagnosed Date Absence of breast 03/05/2025 Ductal carcinoma in situ (DCIS) of left breast 0 10/20/2024 Malignant neoplasm of upper- outer quadrant of left female breast 10/20/2024 Malignant neoplasm of upper- outer quadrant of left breast in female, estrogen receptor positive 06/30/2024 Cyst of left breast 06/29/2024 Ulcerative colitis with complication 11/07/2022 Overview (06/30/2025): Added automatically from request for surgery [id number] Gastroesophageal reflux disease 07/31/2021 Overview (06/30/2025): Added automatically from request for surgery [id number] Gastric polyps 01/09/2019 IBS (irritable bowel syndrome) 04/10/2018 Fibroadenoma of breast 11/27/2013 Encounters Date Type Department Care Team Description 07/14/2025 8:00 AM CONTRIBUTION SOLICITOR Pre-Admission Testing [facility] for Preoperative Assessment and Planning [facility]) [address] [place] [id number] Pre-op testing (Primary Dx) 06/30/2025 10:00 AM CONTRIBUTION SOLICITOR Office Visit [facility] [address] [facility] 6th [place] [address] [place] [address] Paul Abdullahi MD Absence of breast, acquired, left (Primary Dx) 06/23/2025 1:41 PM CONTRIBUTION SOLICITOR - 06/23/2025 11:59 PM CONTRIBUTION SOLICITOR Hospital Encounter [facility] [address] [facility] [address] [place] [address] Ductal carcinoma in situ (DCIS) of left breast Discharge Disposition: Discharge to home or self care 06/23/2025 1:15 PM CONTRIBUTION SOLICITOR Office Visit [facility] [address] [place] [phone] Christi Esquivel PA Ductal carcinoma in situ (DCIS) of left breast (Primary Dx); History of breast cancer; History of left mastectomy; Encounter for screening mammogram for malignant neoplasm of breast 06/17/2025 Telephone [facility] 6th [place] [phone] Warner Pearce CMA FMLA/Disability Form Recvd 06/14/2025 Telephone [facility] [address] [place] [address] [place] [phone] Paul Abdullahi MD 05/10/2025 3:45 PM CDT Office Visit [facility] [address] [place] [phone] Aft, Yareli Jaimes MD PhD Ductal carcinoma in situ (DCIS) of left breast (Primary Dx); Malignant neoplasm of upper-outer quadrant of left breast in female, estrogen receptor positive (HCC) from Last 3 Months Surgical History Surgery Date Site/Laterality Comments BREAST BIOPSY 11/24/2013 Right BREAST BIOPSY 11/24/2013 Right BREAST BIOPSY 07/15/2024 Left CHOLECYSTECTOMY COLONOSCOPY x2 ESOPHAGOGASTRODUODENOSCOPY 08/12/2021 - 08/11/2022 BREAST BIOPSY 04/12/2024 - 05/11/2024 Left DCIS BREAST BIOPSY 08/12/2010 - 08/11/2011 Right MASTECTOMY 10/20/2024 Left DCIS Medical History Medical History Date Comments Breast cancer (HCC) 04/2024 LT DCIS Family History Medical History Relation Name Comments Hypertension Maternal Grandmother Stroke Paternal Grandmother Anesthesia problems Neg Hx Malig Hyperthermia Neg Hx Pseudochol deficiency Neg Hx Relation Name Status Comments Maternal Grandmother Paternal Grandmother Social History Tobacco Use Types Packs/Day Years [...] on file Sexual Orientation Not on file Obstetrics History Para Term AB IAB SAB Ectopic Multiple Livin g Live Births 2 2 Date Outcome GA Total Labor Labor/2nd/3rd Weight Sex Type Anes PTL Davina A1 A5 Name Clin Last Filed Vital Signs Vital Sign Reading Time Taken Comments Blood Pressure 131/80 07/14/2025 8:30 AM CONTRIBUTION SOLICITOR Pulse 76 07/14/2025 8:30 AM CONTRIBUTION SOLICITOR Temperature 36.9 C (98.4 F) 10/21/2024 8:28 AM CDT Respiratory Rate 16 07/14/2025 8:30 AM CONTRIBUTION SOLICITOR Oxygen Saturation 98% 07/14/2025 8:30 AM CONTRIBUTION SOLICITOR Inhaled Oxygen Concentration - - Weight 77.2 kg (170 lb 3.1 oz) 07/14/2025 8:30 A M CONTRIBUTION SOLICITOR Height 167.6 cm (5' 6) 07/14/2025 8:30 AM CONTRIBUTION SOLICITOR Body Mass Index 27.47 07/14/2025 8:30 AM CONTRIBUTION SOLICITOR Plan of Treatment Upcoming Encounters Date Type Department Care Team (Late st Contact Info) Description 07/22/2025 7:30 AM CONTRIBUTION SOLICITOR Hospital Encounter [facility] [address] [place] [address] Paul Abdullahi MD [address] [place] [address] 07/22/2025 7:30 AM CONTRIBUTION SOLICITOR Anesthesia Event [facility] Operating [facility]) [address] [phone] Talib Lulu Garcia, CARLOS [address] [facility] [phone] [place] [address] 07/22/2025 7:30 AM CONTRIBUTION SOLICITOR - 07/22/2025 4:55 PM CONTRIBUTION SOLICITOR Surgery [facility] Operating Room [facility] [address] [place] [address] Paul Abdullahi MD [address] [place] [address] FREE FLAP DEEP INFERIOR EPIGASTRIC PERFORATORS Scheduled Procedures Name Priority Associated Diagnoses Date/Ti me FREE FLAP DEEP INFERIOR EPIGASTRIC PERFORATORS Absence of breast, unspecified laterality 07/22/2025 7:30 AM CONTRIBUTION SOLICITOR Health Maintenance Due Date Last Done Comments Cervical Cancer Screening 1973 Colon Cancer Screening-Colonoscopy 1973 Depression Screening 1973 Hepatitis C Screening 1973 DTaP/Tdap/Td Vaccine (1 - Tdap) 1984 Hepatitis B Screening 1991 Regular Well Visit/Exam 18-64 1991 Pneumococcal vaccine <65 (1 of 2 - PCV) 1992 Zoster Vaccine (1 of 2) 1992 Covid-19 Vaccine (4 - 2024-2 6 season) 2025 08/10/2021, 12/25/2020, 12/03/2020 Influenza Vaccine (#1) 2025 Breast Cancer Screening-Mammogram 06/23/2026 06/23/2025, 06/29/2024, 10/09/2023, Additional history exists Medical Devices Implanted Type Area Engraver Seals Device Identifier Shelf Expiration Date Model / Serial / Lot [employer] Implant Mammary Natrelle Te Smooth 593s-Mn-17-T With Fourte 572p-Sh-21-T - [id number] - [id number] Implanted:Qty: 1 on 10/20/2024 by Paul Abdullahi MD at [facility] Breast Left: Breast [employer] [id number] 03/19/2028 133S-FX-1 2-T / [id number] / [employer] Marker Image Hydromark Plus T5 Titanium 15ga Radiological Implant Sterile 4009-09-26-T5 - [id number] Implanted:Qty: 1 on 07/15/2024 at [facility] Left: Breast [employer] [id number] 4009-09-12 5-T5 / / [id number] Bard Per[employer] V[employer] Marker Breast Ring Shape Radiopaque Nitinol Ultracor Twirl [id number] [id number] - [id number] Implanted:Qty: 2 on 07/15/2024 at [facility] Left: Breast [employer] [id number] / / [employer] Marker Liquid Organic Coating Injectable Suspension Tracer Iron Oxide Magtrace [id number] - [id number] Implanted:Qty: 1 on 10/20/2024 by Aft, Yareli Jaimes MD PhD at [facility] Left: Breast Rodos [employer] 10/20/2025 [id number] / / [id number] Procedures Procedure Name Priority Date/Time Associated Diagnosis Comments DIFFERENTIAL AUTO Routine 07/14/2025 9:4 0 AM CONTRIBUTION SOLICITOR Pre-op testing CBC WITH AUTO DIFFERENTIAL Routine 07/14/2025 9:40 AM CONTRIBUTION SOLICITOR Pre-op testing SCREENING MAMMOGRAM RIGHT W YE UNILATERAL ONLY Schedule Routine, Read Routine (OP Routine) 06/23/2025 2:07 PM CONTRIBUTION SOLICITOR Ductal carcinoma in situ (DCIS) of left breast from Last 3 Months Results * Differential, auto (07/14/2025 9:40 AM CONTRIBUTION SOLICITOR) Neutrophil abs 3.66 1.50 - 6.50 K/cumm Imm gran abs 0.00 0.00 - 0.10 K/cumm [facility] Lymphocyte abs 1.62 0.80 - 3.30 K/cumm [facility] Monocyte abs 0.53 0.20 - 0.80 K/cumm [facility] Eosinophil abs 0.04 0.00 - 0.50 K/cumm [facility] Basophil abs 0.03 0.00 - 0.10 K/cumm [facility] Neutrophil pct 62.2 % [facility] Comment: Interpretive Data Percent cell count reference ranges are not reported, since discordance with absolute values may lead to misinterpretation of CBC data. Current Interpretive Data was last revised on 2017. Imm gran pct 0.0 % [facility] Comment: Interpretive Data Percent cell count reference ranges are not reported, since discordance with absolute values may lead to misinterpretation of CBC data. Current Interpretive Data was last revised on 2017. Lymphocyte pct 27.6 % [facility] Comment: Interpretive Data Percent cell count reference ranges are not reported, since discordance with absolute values may lead to misinterpretation of CBC data. Current Interpretive Data was last revised on 2017. Monocyte pct 9.0 % [facility] Comment: Interpretive Data Percent cell count reference ranges are not reported, since discordance with absolute values may lead to misinterpretation of CBC data. Current Interpretive Data was last revised on 2017. Eosinophil pct 0.7 % [facility] Comment: Interpretive Data Percent cell count reference ranges are not reported, since discordance with absolute values may lead to misinterpretation of CBC data. Current Interpretive Data was last revised on 2017. Basophil pct 0.5 % [facility] Comment: Interpretive Data Percent cell count reference ranges are not reported, since discordance with absolute values may lead to misinterpretation of CBC data. Current Interpretive Data was last revised on 2017. Blood 07/14/2025 9:40 AM CONTRIBUTION SOLICITOR 07/14/2025 10:58 AM CONTRIBUTION SOLICITOR us Lulu Mayers POPULATION GENETICIST LAB BLOOD ORDERABLE S Final Result [facility] Department [place] [address] * (ABNORMAL) CBC with auto differential (07/14/2025 9:40 AM CONTRIBUTION SOLICITOR) WBC 5.88 3.80 - 9.90 K/cumm Hgb 12.1 11.9 - 15.5 g/dL [facility] Hct 38.3 35.6 - 45.5 % [facility] Plt 301 150 - 400 K/cumm [facility] MPV 10.4 9.1 - 12.3 fL [facility] RBC 4.52 3.90 - 5.20 M/cumm [facility] MCV 84.7 81.3 - 96.4 fL [facility] MCH 26.8(L) 27.1 - 33.3 pg [facility] MCHC 31.6(L) 32.3 - 35.7 g/dL [facility] RDW CV 13.8 11.1 - 14.9 % [facility] RDW SD 43.0 35.7 - 48.1 fL [facility] NRBC abs 0.00 0.00 - 0.01 K/cumm [facility] Blood 07/14/2025 9:40 AM CONTRIBUTION SOLICITOR 07/14/2025 10:58 AM CONTRIBUTION SOLICITOR us Lulu Mayers POPULATION GENETICIST LAB BLOOD ORDERABLE S Final Result [facility] Department [place] [address] * Screening Mammogram Right W Ye Unilateral Only (06/23/2025 2:07 PM CONTRIBUTION SOLICITOR) Anatomical Region Laterality Modality Breast Right Mammography Impressions 06/24/2025 11:54 AM CONTRIBUTION SOLICITOR No evidence of malignancy. OVERALL BI-RADS FINAL ASSESSMENT: 2 - Benign RECOMMENDATION: Recommend right breast annual screening mammography. If supplemental screening is desired for heterogeneously dense breast tissue, consider breast MRI every 1-2 years. If breast MRI cannot be performed, contrast-enhanced mammography is an alternative. Narrative 06/24/2025 11:54 AM CONTRIBUTION SOLICITOR EXAMINATION: Screening Mammogram Right W Ye Unilateral Only: 06/23/2025 COMPARISON: Relevant prior studies available at the time of interpretation were reviewed, including the most recent mammogram on: 06/29/2024. TECHNIQUE: Mammography was performed with 2D and 3D digital breast tomosynthesis (DBT) images. CAD was utilized. BREAST PARENCHYMAL COMPOSITION: The breasts are heterogeneously dense, which may obscure small masses. FINDINGS: There is no suspicious mass, calcification, or architectural distortion. us Yareli Sargent MD PhD IMG MAMMO PROCEDURES Final Result from Last 3 Months Insurance [facility] [id number] CHOICE OOS BLUE ACC CHOICE OOS [facility] [id number] Advance Directives For more information, please contact: [phone] Documents on File Type Date Recorded Patient Form Setter Supervisor Expl anation Advance Directives and Livin g Will 10/20/2024 10:15 AM Power of Preschool Special Education Teacher 10/20/2024 10:14 AM * Full Code (Latest Code Status on File) Date Activated Date Inactivated Comments 10/20/2024 6:59 PM 10/21/2024 4:29 PM Care Teams Automobile Upholsterer Apprentice Relationship Specialty [place] [id number] [address] PCP - General Family Practice 05/20/24 Carlene Cramer MD [address]22 [facility] [address] [place] [address] Referring Physician Gynecology 05/12/24
--- OUTSIDE RECORDS SUMMARY | 2025-07-17 13:21 | XMS_ITS | Clinical Summary ---
Author Organization [facility] Address [address] [place] [id number] Care Team Providers Care [facility] Press[facility] Name Role Phone Willi Olea MD Primary Care Provider [phone] Julian Tristan MD Unavailable [phone] Social History Tobacco Use Types Packs/Day Years Used Date Smoking Tobacco: Never Assessed Comments Unknown Sex and Gender Information Value Date Recorded Sex Assigned at Not on file Legal Sex Female 2:42 PM LAST SC[employer]ER Gender Identity Not on file Sexual Orientation Not on file Plan of Treatment Health Maintenance Due Date Last Done Comments Hepatitis C Virus (HCV) Screening 1973 Mammogram 1973 TdaP Immunization 1973 Hepatitis B Immunization (1 of 3 - 19+ 3-dose series) 1992 Pap Smear 1994 Cervical Cancer Screening (CCS) 2003 HPV/Cotest 2003 Cologuard 2018 Colonoscopy 2018 Colorectal Cancer Screening 2018 Immunochemical Fecal Occult Blood 2018 Pneumococcal Immunization (5 0+ years) (1 of 1 - PCV) 2023 Zoster Immunization (1 of 2) 2023 Influenza Immunization (#1) 2025 SARS-COV-2 Immunization ( season) 2025 08/10/2021, 12/25/2020, 12/03/2020 Respiratory Syncytial Virus (RSV) Immunization (Adult) (1 - 1-dose 75+ series) 2048 Human Papillomavirus (HPV) Immunization Aged Out No longer eligible b ased on patient's age to complete this topic Meningococcal Immunization (ACWY) Aged Out No longer eligible b ased on patient's age to complete this topic Rotavirus Immunization Aged Out No lo nger eligible based on patient's age to complete this topic Insurance [facility] [place] Care Teams 2Nd Pressman Relationship Specialty [place] [address] [place] [address] PCP - General Family Medicine 05/07/24 [place] [address] [facility] [address] Consulting Physician Oncology 05/07/24
== END 2025-07-17 14:04 | disposition home or self-care (01) ==
PROVIDERS: Emergency Provider Emergency Medicine; PCP Family Medicine
DX: M79.604 Pain in right leg (principal); I83.91 Asymptomatic varicose veins of right lower extremity
CPT/HCPCS: 93971; 99284